=== PATIENT | female | born 1990 | race Two or more races ===

== ENCOUNTER 2021-11-11 18:37 | Emergency (ER) | payer SELFPAY ==
[2021-11-11 18:48] VITALS: BP 130/84; PULSE 85; RESP 18; TEMP 36.3; O2SAT 100
--- NOTE | 2021-11-11 19:01 | ED.SKABFB ---
HPI - Skin/Abscess/Foreign Bdy General Chief complaint: Skin/Abscess/Foreign Body Stated complaint: possible spider bite on left arm Time Seen by Provider: 11/11/21 19:01 Source: patient, family and RN notes reviewed Mode of arrival: ambulatory Limitations: no limitations History of Present Illness HPI narrative: 31-year-old female who presents to [facility] with complaints of possible spider bite to her left axilla a few hours ago while in shower. Patient reports a small raised tender area in left axilla 1.5cm X1cm area, no open tissue or any drainage noted, patient reports itching and some tenderness to area. Patient is concerned that it was a brown recluse spider and brought insect in box but unable to tell for sure what type of spider it is( is brown with no distinctive newberry noted) MD complaint: insect bite/sting Related Data Allergies Allergy/AdvReac Type Severity Reaction Status Date / Time No Known Allergies Allergy Verified 11/11/21 18:47 Review of Systems Review of Systems: CONSTITUTIONAL: Denies fever, chills, or sweats. EYES: Denies visual changes, redness, or discharge. ENT: Denies rhinorrhea, congestion, sore throat, or otalgia. CARDIOVASCULAR: Denies chest pain, palpitations, or edema. RESPIRATORY: Denies cough or dyspnea. GASTROINTESTINAL: Denies abdominal pain, nausea, vomiting, or diarrhea. GENITOURINARY: Denies dysuria or hematuria. SKIN: Small area of pink raised tissue in left axilla with itching and minimal tenderness. MUSCULOSKELETAL: Denies back pain, joint pain, or myalgia. NEUROLOGIC: Denies headache, numbness, or weakness. PSYCHIATRIC: Denies anxiety or depression. All systems reviewed & are unremarkable except as noted in HPI and below [facility] Past Medical History Medical History (Updated 11/11/21 @ 19:54 by Angy Turpin NP) No significant past medical history Surgical History Surgical History (Updated 11/11/21 @ 19:10 by Angy Turpin NP) H/O right knee surgery Social History Social History (Updated 11/11/21 @ 19:11 by Angy Turpin NP) Smoking packs per day: 0.5 Smoking cigarettes per day: 10.0 Smoking status: Current every day smoker Tobacco type: cigarettes Alcohol intake: current Alcohol use details: social Substance use: unknown Comments At time of signature, agree with nursing past medical, surgical, social and family history. There is no relevant family history pertinent to the presenting complaint Exam Narrative: GENERAL: Well-appearing, well-nourished, and in no acute distress. HEAD: Normocephalic, atraumatic. EYES: PERRLA and EOMI. ENT: Nares clear, no rhinorrhea or epistaxis. Mucous membranes moist. NECK: Supple.no lymphadenopathy CHEST: Clear to auscultation. No respiratory distress.TM's normal with good light reflex, throat pink with no lesions or exudates,no tonsil swelling HEART: Regular rate and rhythm. No murmur heard. Normal peripheral pulses. ABDOMEN: Soft, nontender, nondistended, normal active bowel sounds. EXTREMITIES: Normal range of motion. No edema.1.5X1cm slight raised pink area to left axilla where patient states some tenderness and itching, no drainage or any induration of tissue. SKIN: Warm, dry, no rash. NEURO: No focal deficits. Alert and oriented x3. Course Course Level of Care: Express Care Visit Vital Signs Vital signs: Vital Signs Temperature 36.3 C L 11/11/21 18:48 Pulse Rate 85 11/11/21 18:48 Respiratory Rate 18 11/11/21 18:48 Blood Pressure 130/84 11/11/21 18:48 Pulse Oximetry 100 11/11/21 18:48 Temperature 36.3 C L 11/11/21 18:48 Pulse Rate 85 11/11/21 18:48 Respiratory Rate 18 11/11/21 18:48 Blood Pressure 130/84 11/11/21 18:48 Pulse Oximetry 100 11/11/21 18:48 MDM - Skin/Abscess/Foreign Bdy Differential Diagnosis Differential diagnosis: Likely abscess of skin or subcutaneous tissue, cellulitis, eczema, insect bites and contact dermatitis Medical Records Att
== END 2021-11-11 19:23 | disposition home or self-care (01) ==
PROVIDERS: Emergency Provider Registered Nurse
DX: S40.862A Insect bite (nonvenomous) of left upper arm, initial encounter (principal); F17.210 Nicotine dependence, cigarettes, uncomplicated; W57.XXXA Bitten or stung by nonvenomous insect and other nonvenomous arthropods, initial encounter
CPT/HCPCS: 99213; G0463